=== PATIENT | male | born 1990 ===

== ENCOUNTER 2021-11-27 14:28 | Outpatient (RCR) | payer BC, SELFPAY ==
[2021-11-27 14:42] VITALS: BP 125/74; PULSE 66; RESP 20; TEMP 36.8; O2SAT 99
[2021-11-27] MEDS: diphenhydrAMINE HCl CAP 25 MG CAPSULE PO (14:47)
[2021-11-27] MEDS: ACETAMINOPHEN 325 MG TABLET 650 MG PO (14:47)
[2021-11-27] MEDS: FAMOTIDINE 20 MG TABLET PO (14:47)
[2021-11-27 16:06] VITALS: BP 126/74; PULSE 60; O2SAT 100
== END 2021-11-27 16:00 ==
LOC: AMCINF 14:28
PROVIDERS: PCP Family Medicine; Visit Provider Internal Medicine Hematology & Oncology
DX: U07.1 COVID-19 (principal)
CPT/HCPCS: A9270; M0243; Q0244